=== PATIENT | male | born 1965 | race Caucasian/White ===

== ENCOUNTER 2017-07-15 01:58 | Emergency (ER) | payer BC, OTHER ==
[~2017-07-15] VITALS: Ht 182.9 cm; Wt 86.2 kg
[2017-07-15 02:41] LABS: ABSOLUTE BASOPHILS 0.1 thou/uL (0.0-0.2); ABSOLUTE EOSINOPHILS 0.1 thou/uL (0.0-0.7); ABSOLUTE LYMPHOCYTES 4.3 thou/uL (0.8-5.3); ABSOLUTE MONOCYTES 0.9 thou/uL (0.0-1.2); ABSOLUTE NEUTROPHILS 5.3 thou/uL (1.6-8.1); BASOPHILS 0.5 %; EOSINOPHILS 1.2 %; HEMATOCRIT 46.7 % (42.0-52.0); HEMOGLOBIN 15.8 gm/dL (14.0-18.0); LYMPHOCYTES 40.3 %; MCH 32.3 pg (26.0-34.0); MCHC 33.8 g/dL (28.0-37.0); MCV 95.8 fL (80.0-100.0); MONOCYTES 8.7 %; MPV 9.5 fl. (7.2-11.1); NUCLEATED RBCS 0 /100WBC; PLATELET COUNT* 179 thou/uL (150-400); POLYS 49.3 %; RBC 4.88 mil/uL (4.50-6.00); RDW-CV 13.3 % (10.5-14.5); WBC 10.7 thou/uL (4.0-11.0)
[2017-07-15 02:47] LABS: CALCIUM 8.6 mg/dL (8.5-10.1); CREATININE 1.5 mg/dL (0.6-1.3); POTASSIUM 3.9 mmol/L (3.5-5.1)
[2017-07-15 02:51] LABS: ALBUMIN 3.5 g/dL (3.4-5.0); TOTAL BILIRUBIN 0.3 mg/dL (<0.1-1.0); TOTAL PROTEIN 6.7 g/dL (6.4-8.2)
[2017-07-15] MEDS ORDERED: FLOMAX0.4 MG PO (03:54)
[2017-07-15] MEDS ORDERED: PERCOCET 5-3251 EACH PO (03:54)
[2017-07-15] MEDS ORDERED: CIPROFLOXACIN500 M1 PO (03:54)
[2017-07-15 04:13] VITALS: BP 118/72
== END 2017-07-15 04:16 | disposition home or self-care (01) ==
LOC: M.ERS 01:58
PROVIDERS: Family Medicine
DX: N20.0 Calculus of kidney (principal); Z88.2 Allergy status to sulfonamides